=== PATIENT | female | born 1975 ===

== ENCOUNTER 2025-02-17 10:04 | Outpatient (AMB) | payer MEDICARE, MEDICAID, SELFPAY ==
--- NOTE | 2025-02-17 10:07 | A.OFFVIS_ITS ---
VS Expanded 02/17/25 10:09 02/19/25 09:14 Height 4 ft 11 in 4 ft 11 in Weight 173 lb 15.115 oz 175 lb BMI 35.1 35.3 Intake Visit Reasons: Obesity Medication List - Last Reconciled 02/19/[address], LDN atenolol 25 mg PO DAILY multivitamin 1 tab PO DAILY omeprazole 20 mg PO DAILY trazodone 50 mg PO DAILY Nutrition Presentation Details: Pt presents for MNT for obesity, referred by PCP Pt reports challenges with unable to lose weight, having tried meal planning and following healthy plate method. Pt reports trying weight loss diets in the past: counting calories with no success. Typical meal 2 coffee during the day with unflavored creamer and 2-3 tbsp sugar 1-2 toast with peanut butter 3-4 pm snack: yogurt/grapes 4:30 1 1/2 oc rice/2-3 oz pork chops/broccoli/cauliflower/butter, water reports not eating after dinner food frequency dairy: 2-3 /d fish : 0-1/wk fruits: 3/d veg: daily 2-3 servings starches > 20 takes mvi for hair/nail vitamin Physical activity : reports limited due to hip bursitis etoh/smoking: denies BS Monitoring Most Recent Diabetes Results: No Data to Display QGP-Bjtuzef-Me.Jeor Equation Height: 4 ft 11 in Weight: 175 lb Resting Metabolic Rate: 1327.54 Calculated Activity Level: Sedentary Calories Needed to Maintain Weight: 1593.05 Diagnosis Nutrition problem #1: overweight/obesity As related to (etiology) #1: diagnosis As evidenced by (sign/symptom) #1: high BMI (35.3 on 02/2025) [facility] Medical History (Updated 02/19/25 @ 09:[address], LDN) Anemia OCD (obsessive compulsive disorder) Vitamin D deficiency Vitamin B12 deficiency GERD (gastroesophageal reflux disease) Assessment & Plan Assessment & Plan (1) Obesity (BMI 35.0-39.9 without comorbidity): Code(s): E66.9 - Obesity, unspecified Category: Medical Plan Wt: 79 Kg ( 03/05 ) Est kcal needs as per MSJ: 1600-250 =1400 (40% carb, 30% protein/fat) Est fluid needs as per 25-30 ml/d: 2400 Est prot per day as per 0.8- 1 g/kg bw: 60- 80 Recommend fiber intake : 8-10 g per day and gradually increase to 25-28 g per day for women and 35-38 g for men or as tolerated Recommend sodium intake per day : less than 1500 mg less than 2000 mg Educated patient on: ( R = reviewed V = verbalizes understanding N/R = needs review N/A = not applicable * Food sources of carbohydrate, adequate serving sizes and its role in various health conditions: R V N/R * Differences between complex carbohydrates a simple carbohydrates, role of fiber in diet: R V N/R * Lean protein sources of foods: R V NR * Differences between types of fats and role in diet (mono on saturated fat fatty acids, saturated fatty acids, trans fats): R V N/R * Food sources of sodium in salt and healthy modifications for heart health in kidney health: R V R/V * Vitamins and minerals: R V N/R * Healthy plate method concept: R V N/R * Physical activity: Benefits a precaution: R V N/R Patient Instructions: Choose starchy vegetables and naturally gluten free whole grains and reduce total carbohydrate to 30- 45 g per meals, 3 meals/d following healthy plate method Combine protein foods with non starchy vegetable or a fruit (combining protein with vitamin C for better absorption) see meal ideas printed and discussed keep hydrated by having water with meals/snacks Coding Level of Care Code Nutr Indiv Intake (85752) Diagnoses Obesity (BMI 35.0-39.9 without comorbidity) E66.9 Time Spent (min) 30
[2025-02-17 10:09] VITALS: BMI 35.1
--- OUTSIDE RECORDS SUMMARY | 2025-02-17 11:07 | XMS_ITS | Encounter Summary ---
Author Organization [facility] [place] [address] Care Team Providers Care Licensing Representative Name Role Phone Sariah Carrillo MD Primary Care Prov ider Encounter Details Date Type Department Care Team (Late Contact Info) Description 11/06/2024 Lab Requisition [facility] [address] [place] [phone] Melquiades Benítez MD [address] [place], [place] [id number] Iron deficiency anemia, unspecified Social History Tobacco Use Types Packs/Day Years Used Date Smoking Tobacco: Former Cigarettes Q uit: 2013 Smokeless Tobacco: Never Alcohol Use Standard Drinks/Week Comments Yes 1 (1 standard drink = 0.6 oz pur e alcohol) Comments Unknown Sex and Gender Information Value Date Recorded Sex Assigned at Not on file Legal Sex Female 3:04 PM EST Gender Identity Not on file Sexual Orientation Not on file documented as of this encounter Plan of Treatment Upcoming Encounters Date Type Department Care Team ([facility] Contact Info) Description 04/07/2025 3:45 PM EDT Office Visit Adult Medicine [facility] [address] [place] [phone] Sariah Carrillo MD [address] [place] [address] 09/30/2025 2:30 PM EST Consult Bariatric Surgery - [place] [address] [place] [phone] Shanna Yanez PA [address] [place] [address] documented as of this encounter Procedures Procedure Name Priority Date/Time Associated Diagnosis Comments TISSUE EXAM Routine 11/05/2024 Iron deficiency anemia, unspecified documented in this encounter Results * Tissue Exam (11/05/2024) Final Diagnosis A. Colon, rectum polyp: - Ganglioneuroma. - Immunohistochemistry: - S100: positive in lesion. - Desmin: negative in lesion. Note: The immunoprofile supports the above diagnosis. Case was reviewed in intradepartmental case conference with consensus agreement in the above diagnosis. B. Small Intestine, Duodenum, biopsy: - Duodenal mucosa with preserved villi and no specific pathologic changes. - Negative for increased intraepithelial lymphocytes. 8:[address] [facility] Clinical Information Iron deficiency anemia Finding:R/O celiac sprue 8:45 AM EST [facility] Gross Description A. Colon, rectum polyp: Labeled rectum polyp . Received in formalin is a 0.3 cm rosado polypoid tissue fragment with 0.5 cm of attached rosado mucosal tissue. The probable margin is inked black. The specimen is submitted in toto wrapped in paper in one cassette, one piece, multiple levels on one slide. B. Small Intestine, Duodenum, biopsy: Labeled duodenum biopsy . Received in formalin is a 0.3 cm irregular rosado mucosal tissue fragments which is wrapped in paper and submitted total one cassette, one piece, multiple levels on one slide. KATHERINE 8:[address] [facility] Disclaimer NOTE: The immunohistochemical tests and in situ hybridization tests were developed and their performance characteristics were determined by [facility]. They have not been cleared or approved by the U.S. Food and Drug Administration. The FDA has determined that such clearance or approval is not necessary. These tests are used for clinical purposes. They should not be regarded as investigational or for research. This laboratory is certified under the Clinical Laboratory Improvement Amendments of 1988 (CLIA) as qualified to perform high complexity clinical laboratory testing. (controls appropriate) Unless otherwise specified, all tissue is 10% NB formalin fixed and paraffin embedded. 8:45 AM EST [facility] Tissue Duodenal structure / Unknown 11/05/2024 11/06/2024 8:01 AM EST Tissue specimen (specimen) Duodenal structure / Unknown 11/05/2024 11/06/2024 8:01 AM EST us Melquiades Benítez MD LAB PATHOLOGY ORDERABLES Fi nal Result [facility] [address] [place] [address], documented in this encounter Visit Diagnoses Diagnosis Iron deficiency anemia, unspecified documented in this encounter Care Teams Licensing Representative Relationship Specialty Start Date End Date Sariah Carrillo MD [address] [place] [id number] PCP - General 11/17/08 documented as of this encounter
[2025-02-19 09:14] VITALS: BMI 35.3
== END 2025-02-17 11:11 | disposition home or self-care (01) ==
LOC: HO.ENCR 10:04
PROVIDERS: PCP Internal Medicine; Visit Provider Dietitian, Registered
DX: E66.9 Obesity, unspecified (principal)

== ENCOUNTER → 2025-02-17 10:04 | Outpatient (BNVA) | payer MEDICARE, MEDICAID, SELFPAY | PROVIDERS: PCP Internal Medicine; Visit Provider Dietitian, Registered | DX: E66.9 Obesity, unspecified (principal); Z68.35 Body mass index [BMI] 35.0-35.9, adult | CPT/HCPCS: 97802 ==